=== PATIENT | male | born 1960 | race Caucasian/White ===

== ENCOUNTER 2022-08-17 05:40 | Day surgery (SDC) | payer OTHER ==
[~2022-08-17] VITALS: Ht 167.6 cm; Wt 51.3 kg
[2022-08-17] MEDS ORDERED: CEFAZOLIN SOD 2 GM in D5W 50 ML IV ONE (07:00)
[2022-08-17] MEDS ORDERED: BUPIVACAINE LIPOSOME/PF 266 MG/20 ML VIAL INFIL ONE (11:12)
[2022-08-17] MEDS ORDERED: ACETAMINOPHEN 325 MG TABLET PO ONE (11:30)
[2022-08-17] MEDS ORDERED: HYDROmorphone 1 MG/ML INJ. CARTRIDGE IVP PRN (11:30)
[2022-08-17] MEDS ORDERED: ONDANSETRON HCL 4 MG/2 ML VIAL IVP PRN (11:30)
[2022-08-17] MEDS ORDERED: METOCLOPRAMIDE HCL 10 MG/2 ML VIAL IVP PRN (11:30)
[2022-08-17] MEDS ORDERED: MORPHINE 4 MG INJ. 4 MG/ML VIAL IVP PRN (11:30)
[2022-08-17] MEDS ORDERED: LR 1,000 ML IV.SOLN IV ONE (12:45)
[2022-08-17] MEDS ORDERED: NS IRRIG SOLN 1000 ML IR ONE (12:45)
[2022-08-17] MEDS ORDERED: ONDANSETRON HCL 4 MG/2 ML VIAL ONE ×2 (12:45→13:40)
[2022-08-17] MEDS ORDERED: SEVOFLURANE 15 MIN GAS INH ONE (12:45)
[2022-08-17] MEDS ORDERED: BUPIVACAINE /PF 0.5% 30 ML VIAL ONE (12:45)
[2022-08-17] MEDS ORDERED: PROPOFOL 200MG/ 20ML VIAL (DIPRIVAN) IV ONE (12:45)
[2022-08-17] MEDS ORDERED: hydrALAZINE HCL 20 MG/ML VIAL IVP ONE (14:45)
[2022-08-17] MEDS ORDERED: hydrALAZINE HCL 20 MG/ML VIAL ONE (15:05)
[2022-08-17 17:03] VITALS: BP_SYST 154
== END 2022-08-17 16:10 | disposition home or self-care (01) ==
LOC: SMU 05:40 → SDS 05:40
PROVIDERS: ATTEND Surgery
DX: K40.90 Unilateral inguinal hernia, without obstruction or gangrene, not specified as recurrent (principal); I10 Essential (primary) hypertension; E11.9 Type 2 diabetes mellitus without complications; Z79.899 Other long term (current) drug therapy; Z20.822 Contact with and (suspected) exposure to COVID-19
CPT/HCPCS: 36415 ×2; 49505; 87426; 88302; 82962; U0003; C9290; J3490; J0690; J0360; J2405; J2704; J7060; J7120; 82948; C1781